=== PATIENT | male | born 1930 | race Asian ===

== ENCOUNTER 2016-10-24 10:05 | Inpatient (IN) | payer OTHER ==
[2016-11-12] MEDS ORDERED: QUET100T2 PO (00:12)
[2016-11-12] MEDS ORDERED: TAMS0.4C PO (00:15)
[2016-11-12] MEDS ORDERED: LANTUS100 MG/ML SC (00:16)
[2016-11-12] MEDS ORDERED: MEGESTROL AC40 MG PO (00:16)
[2016-11-12] MEDS ORDERED: OXYB5TAB56 PO (00:17)
[2016-11-12] MEDS ORDERED: NIFE30TA PO (00:18)
[2016-11-12] MEDS ORDERED: RISP0.25 PO (00:19)
[2016-11-12] MEDS ORDERED: FOLI1TAB26 PO (00:19)
[2016-11-12] MEDS ORDERED: ALLO300T23 PO (00:21)
[2016-11-12] MEDS ORDERED: TRAM50TA PO (00:21)
[2016-11-12] MEDS ORDERED: ZANTAC 75 PO (00:22)
[2016-11-12] MEDS ORDERED: LISI10TA11 PO (00:22)
[2016-11-12] MEDS ORDERED: HALO5INJ3 IM (00:24)
== END 2016-11-24 08:00 | disposition still patient (30) ==
LOC: PAVC 10:05
PROVIDERS: ADMIT Internal Medicine
DX: Z51.89 Encounter for other specified aftercare (principal)

== ENCOUNTER 2016-11-24 09:00 | Inpatient (IN) | payer OTHER ==
[~2016-11-24 09:00] MED LIST: ALLO300T23 PO; FOLI1TAB26 PO; HALO5INJ3 IM; LANTUS100 MG/ML SC; LISI10TA11 PO; MEGESTROL AC40 MG PO; NIFE30TA PO; OXYB5TAB56 PO; QUET100T2 PO; RISP0.25 PO; TAMS0.4C PO; TRAM50TA PO; ZANTAC 75 PO
== END 2016-12-04 09:51 | disposition expired ==
LOC: PAVC 09:00
PROVIDERS: ADMIT Internal Medicine
DX: Z51.89 Encounter for other specified aftercare (principal)

== ENCOUNTER 2016-11-27 08:09 | Outpatient (CLI) | payer OTHER | END 2016-11-27 09:09 | disposition home or self-care (01) | LOC: MRI 08:09 → RESP 10:00 | DX: R55 Syncope and collapse (principal) | CPT/HCPCS: 93225; 93306 ==

== ENCOUNTER 2016-11-28 07:47 | Inpatient (IN) | payer OTHER ==
[2016-11-28] VITALS (16 sets, daily range): BP systolic 56–132; BP diastolic 27–59; TEMP 89.4–97.2; Ht 182.9 cm; Wt 108.6 kg
[~2016-11-28] VITALS: Ht 182.9 cm; Wt 108.6 kg
[2016-11-28 08:14] LABS: PLATELET COUNT 180 K/uL (142-355)
[2016-11-28 08:37] LABS: POTASSIUM 5.3 mmol/L (3.6-5.2); SODIUM 132 mmol/L (136-145)
--- NOTE | 2016-11-28 12:25 | NUR ---
PT ADMITTED FROM ER, PT UNRESPONSIVE AT THIS TIME.
--- NOTE | 2016-11-28 12:35 | NUR ---
BODY TEMP 90 DEGREES. WARMING BLANKET APPLIED
--- NOTE | 2016-11-28 12:57 | NUR ---
ABG DRAWN PER RESP TH
--- NOTE | 2016-11-28 13:20 | NUR ---
DR. WHEELER HERE TO SEE PT. RECEIVED NEW ORDERS.
--- NOTE | 2016-11-28 13:30 | NUR ---
LEVOPHED DRIP INCREASED 22.5ML/HR/6MCG/KG/MIN. BP 50/20.
--- NOTE | 2016-11-28 15:00 | NUR ---
NO URINE OUTPUT AND V/S REPORTED TO DR. WHEELER.
--- NOTE | 2016-11-28 16:07 | NUR ---
FAMILY AT BEDSIDE.
--- NOTE | 2016-11-28 16:22 | NUR ---
ASHLEY AT BS
--- NOTE | 2016-11-28 17:12 | NUR ---
dr. farnsworth called to check on pt. received new orders.
--- NOTE | 2016-11-28 17:12 | NUR ---
increased levophed drip to 10mcg/37.5ml/hr.
--- NOTE | 2016-11-28 18:00 | NUR ---
NGT ATTEMPTED DOWN NARE AND ORAL X 3 ATTEMPTS. UNSUCCESSFUL. RT AT BEDSIDE FOR ART LINE PLACEMENT.
--- NOTE | 2016-11-28 18:30 | NUR ---
PT RESPONDS TO PAINFUL STIMULI, MOVES ARM WHILE ABG ATTEMPTED. EYES OPEN AT TIMES.
--- NOTE | 2016-11-28 18:54 | NUR ---
ART LINE PLACED X 3 ATTEMTPS PER RT. BP 75/[address] WHEELER NOTIFIED.
--- NOTE | 2016-11-28 20:06 | NUR ---
FAXED NEW ORDER FOR VASOPRESSIN TO PHARMACY.
--- NOTE | 2016-11-28 20:11 | NUR ---
CALLED PHARM D FOR INSTRUCTIONS ON VASOPRESSIN.
--- NOTE | 2016-11-28 23:41 | NUR ---
RESP AT BEDSIDE TO OBTAIN ABG.
--- NOTE | 2016-11-28 23:47 | NUR ---
UNABLE TO OBTAIN BLOOD FOR ABG. PER RESP. FELTON GOMEZ RN
[2016-11-29] VITALS (92 sets, daily range): BP systolic 94–151; BP diastolic 36–95; TEMP 96.4–98.3
--- NOTE | 2016-11-29 | NUR ---
RESP AT BEDSIDE WITH ASST FROM ER STAFF TO OBTAIN ABG FEMEROL.
--- NOTE | 2016-11-29 00:16 | NUR ---
MS MASON CALLED TO CHECK ON PT. STATED THAT PT'S SON SHOULD BE HERE BY 08:00 AM FROM [place].
--- NOTE | 2016-11-29 00:30 | NUR ---
RESULTS FROM ABG WERE SENT TO DR WHEELER VIA TEXT MESSAGE. HE REPLIED BACK WITH THE FOLLOWING CHANGES BEING MADE ON THE VENT TIDAL VOLUME DECREASED TO 500 RESP RATE TO 16 AND FIO2 TO 80% CHANGES WERE MADE
--- NOTE | 2016-11-29 02:51 | NUR ---
ORAL CARE GIVEN. SUCTIONED ORALLY WITH YANKUER . FROTHY BLOOD TINGED SPUTUM OBTAINED. WASHED PT FACE. REPOSITIONED LOWER EXT UP ON PILLOW. URINE OUTPUT BEING MONITORED. PT RECEIVING IVF'S OF NS AT 150 ML/HR, LEVOPHED INFUSING AT 37.5 ML (10 MCG/KG/MIN), AMIODARONE DRIP INFUSING AT 16.6 ML AN HOUR, AND VASOPRESSIN INFUSING AT 1.5 ML/HR 0.01 UNITS A MINUTE. CM WITH IRREGULAR RHYTHM. HR 80'S TO 90'S. BP STABLE. BUCIO CATHETAR INTACT. PT DOES TENSE HIS UPPER EXT WHEN STIMULATED BY TOUCH. EYES WILL OPEN BUT WILL NOT FOCUS. PT DOES NOT MOVE LOWER EXTREMITIES.
[2016-11-29 06:35] LABS: PLATELET COUNT 182 K/uL (142-355)
--- NOTE | 2016-11-29 06:40 | NUR ---
BLOOD WAS COLLECTED AND SENT TO LAB.
[2016-11-29 06:49] LABS: POTASSIUM 4.7 mmol/L (3.6-5.2)
--- NOTE | 2016-11-29 07:00 | NUR ---
REPORT FROM PM STAFF. PT RESTIMG WITH EYES CLOSED. PT NON RESPONSIVE TO TOUCH OR STIMULI AT THIS TIME. PUPILS 4MM. NOT RESPONSIVE TO LIGHT. PT STIFF BUT ARMS FALL TO SIDES WHEN DROPPED.
--- NOTE | 2016-11-29 08:45 | NUR ---
ABG DRAWN PER JOSE RAMON GOMEZ SERVICE AIDE, RESUTS TO DR WHEELER PER VIRGIL LEYVA RELIGIOUS EDUCATOR/SCRIBE.
--- NOTE | 2016-11-29 09:30 | NUR ---
VASOPRESSION DRIP STOPPED PER ORDER. MAP 100. NOREPINEPHRINE DECRAESED TO 8MCG/KG/MIN. PT WITH NO RESPONSE OR MOVEMENT OTHER THAN TO OPEN EYES,
--- NOTE | 2016-11-29 10:05 | NUR ---
VENT CHANGES PER ROBSON ALEMAN SALES ASSISTANT DISPLAYS,TV DECREADED TO450,RR RATE DEC. TO 14,PEEP DEC. TO 5, O2 DECREASED TO 60%.
--- NOTE | 2016-11-29 11:34 | NUR ---
DR WHEELER IN TO SEE PT. NEW ORDERS.
--- NOTE | 2016-11-29 11:55 | NUR ---
RADIOLOGY IN FOR CXR.
--- NOTE | 2016-11-29 12:00 | NUR ---
ABG DRAWN PER RESPIRATORY.
--- NOTE | 2016-11-29 12:15 | NUR ---
PT'S SON HERE & IN TO VISIT. DR WHEELER NOTIFIED.
--- NOTE | 2016-11-29 12:20 | NUR ---
PEEP INCREASED TO 10 PER CERTIFIED SKI PATROLLER JOSE RAMON GOMEZ.
--- NOTE | 2016-11-29 13:50 | NUR ---
DR WHEELER IN TO SEE PT'S SON. DISCUSSED OPTIONS. SON WAITING FOR OTHER FAMILY TO ARRIVE BEFORE MAKING A DECISION.
--- NOTE | 2016-11-29 14:34 | NUR ---
PT WITH MAP 80'S, NOREPI DRIP DECREASED TO 6MCG/MIN, 22.5 CC/HR.
--- NOTE | 2016-11-29 16:54 | NUR ---
PT WITH MAP IN THE 80'S. NOREPI DRIP DECREASED TO 4 MCG/MIN/15CC/HR. MULTIPLE FAMILY MEMBERS IN TO SEE PT. NO DECISIONS MADE AT THIS TIME PER FAMILY TO CHANGE CODE STATUS.
--- NOTE | 2016-11-29 18:22 | NUR ---
PT RESTING WITH EYES CLOSED. TURNED & REPOSITIONED FOR COMFORT EYES OPENED WHEN TUNED. NO OTHER RESPONSE NOTED.
--- NOTE | 2016-11-29 19:15 | NUR ---
ASSESSMENT COMPLETED AT THIS TIME. PATIENT DOES NOT FOLLOW COMMANDS. SLIGHT MOVEMENT NOTED TO BOTH HANDS WHEN PATIENT STIMULATED BY TOUCH WHEN DOING ASSESSMENT. PUPILS ARE 4MM NONREACTIVE. ET TUBE 25 AT THE LIP VENT SETTINGS 60%, TV 500, RT 16, PEEP 10. RIGHT IG 20 G NOTED SALINE LOCKED. LEFT SUBCLAVIAN TRIPLE LUMEN CATH NOTED INFUSING LEVOPHED AT 4 MCG/MIN (15ML/HR), NS AT 150 ML/HR, AMIODORONE AT 16.6 ML. HEART RYTHYM NOTED TO SR WITH ARTIFACTS AT 88 BPM. BUCIO CATH NOTED TO BE PRESENT PATENT AND INTACT WITH APPROX 300ML OF YELLOW URINE NOTED.
--- NOTE | 2016-11-29 21:10 | NUR ---
MAP>80, LEVOPHED DRIP DECREASED TO 3MCG/MIN (11.3 ML/HR). WILL CONTINUE TO MONITOR CLOSELY.
--- NOTE | 2016-11-29 21:10 | NUR ---
MAP >80 , TITRATED RATE DOWN TO 3MCG/MIN ( 11.3 ML/HR).
--- NOTE | 2016-11-29 23:05 | NUR ---
ORAL CARE PROVIDED AND MOUTH SUCTIONED WITH PEDRITOUER. WHITE THICK FROTHY SPUTUM NOTED. PATIENT TOLERATED FAIRLY WELL.
--- NOTE | 2016-11-29 23:30 | NUR ---
SON ANNALEE ARANGO HERE TO SEE PATIENT. STATES HE IS WAITING FOR HIS FATHER'S SISTER'S TO COME AND SEE HIM AND HE WILL DECIDE TOMMOROW AFTERNOON TO TAKE HIM OFF THE VENTILATOR. PROVIDED AMPLE TIME FOR QUESTIONS AND CONCERNS.
--- NOTE | 2016-11-29 23:32 | NUR ---
MAP>90 LEVOPHED DRIP DECREASED TO 2MCG/MIN (7.5 ML/HR). WILL CONTINUE TO MONITOR.
[2016-11-30] VITALS (36 sets, daily range): BP systolic 119–152; BP diastolic 60–92; TEMP 97–98.5
--- NOTE | 2016-11-30 00:30 | NUR ---
PATIENT SUCTIONED AT THIS TIME. WHITE/GREEN TINGED THICK SECRETIONS NOTED.
--- NOTE | 2016-11-30 01:30 | NUR ---
PATIENT REPOSITIONED AT THIS TIME ON HIS RIGHT SIDE WEDGE PLACED ON HIS BACK.
--- NOTE | 2016-11-30 02:45 | NUR ---
CURRENT VENT SETTINGS FIO2 60%, RATE 14, TIDAL VOLUME 450, PEEP 10.
--- NOTE | 2016-11-30 04:14 | NUR ---
GARGLING NOISES HEARD IN PATIENT'S MOUTH. MOUTH SUCTIONED AT THIS TIME. SMALL AMOUNT OF THICK SECRETIONS NOTED.
--- NOTE | 2016-11-30 04:35 | NUR ---
MAP>80 LEVOPHED TITRATED DOWN TO 1MCG (3.8ML/HR).
--- NOTE | 2016-11-30 06:25 | NUR ---
PARTIAL BATH GIVEN. MOUTH CARE DONE AT THIS TIME. PATIENT REPOSITIONED ON HIS LEFT SIDE WITH WEDGE SUPPORTING HIS LOWER BACK. PATIENT DOES OPEN AND MOVE HIS EYELIDS PARTIALLY WHEN REPOSITIONING BUT NO OTHER MOTOR MOVEMENTS NOTED.
[2016-11-30 06:41] LABS: PLATELET COUNT 156 K/uL (142-355)
[2016-11-30 07:22] LABS: POTASSIUM 4.1 mmol/L (3.6-5.2)
--- NOTE | 2016-11-30 08:15 | NUR ---
LEVOPHED STOPPED, BP 136/89
--- NOTE | 2016-11-30 11:12 | NUR ---
ADJUSTMENTS MADE TO VENT PER RESP THERAPY. DECREASED RATE 12, DECREASED FI02 50%
--- NOTE | 2016-11-30 12:37 | NUR ---
PT PLACED BACK ONTO WARMING BLANKET RECTAL TEMP 96.8
--- NOTE | 2016-11-30 14:30 | NUR ---
VENT MONITOR ALARMING, HIGH RESP RATE. RHONCHI TO MARCELLE UPPER LOBES. PT LAVAGED, SUCTIONED SEVERAL TIMES, YELLOW SECRETIONS REMOVED.
--- NOTE | 2016-11-30 15:22 | NUR ---
DR WHEELER AT BS WITH SON.
--- NOTE | 2016-11-30 16:10 | NUR ---
PT EXTUBATED, SATS IMMED DROP TO 58% NON REBREATHER INPLACE
--- NOTE | 2016-11-30 16:20 | NUR ---
SATS INCREASE 100%. FAMILY AT BS
--- NOTE | 2016-11-30 16:53 | NUR ---
PT TRANSPORTED TO [facility] 1111, PT CURRENTLY ON A NON REBREATHER. FAMILY AT BS. SUCTION AT BS
--- NOTE | 2016-11-30 17:30 | NUR ---
REPORT GIVEN TO HOSPICE NURSE.
--- NOTE | 2016-11-30 17:50 | NUR ---
PT SUCTIONED. RESP LABORED.
--- NOTE | 2016-11-30 18:07 | NUR ---
SCOPALAMINE PLACED BEHIND R EAR
--- NOTE | 2016-11-30 19:05 | NUR ---
PT SUCTIONED, HOB UP. RESP 25. FAMILY AT BS
[2016-12-01 20:10] VITALS: BP 144/81; TEMP 97.9
[2016-12-02 08:24] VITALS: BP 134/58; TEMP 98.2
--- NOTE | 2016-12-02 11:57 | NUR ---
1145 REPORT CALLED AND GIVEN LIZ AT [facility]. PT'[facility] MEDS FROM [facility] . PT TRANSFFERED BACK TO [facility] VIA BED NO CHANGES NOTED
--- NOTE | 2016-12-02 12:43 | NUR ---
1215 PT TRANSFERRED TO [facility] VIA BED PER TECHS. PT TOLERATED WELL. NO CO OR CHANGES NOTED AT THIS TIME. PT TOLERATED TRANSFER WELL. 1240 SPOKE WITH LIZ AT [facility] CONCERNING NON REBREATHER. SPOKE WITH DR CARMICHAEL CONCERNING PER NURSE UNABLE TO SUPPORT PT ON NON REBREATHER DUE TO O2 CAPABLITIES. NEW ORDERS REC'D TO CHANGE PT TO NC AT 5L/NC. ORDERS GIVEN VIA PHONE TO LIZ
== END 2016-11-30 16:47 | disposition short-term general hospital (02) | DRG 208 ==
LOC: ED 07:47 → ICU 10:10 → MED/SURG 11-30 16:47 → ICU 11-30 16:47 → MED/SURG 11-30 16:50 → ED 11-30 16:50 → ICU 12-02 12:15 → MED/SURG 12-02 12:15
PROVIDERS: Internal Medicine
PROC: 5A1945Z Respiratory Ventilation, 24-96 Consecutive Hours (ICD-10-PCS; principal; 2016-11-28)
PROC: 0BH18EZ Insertion of Endotracheal Airway into Trachea, Via Natural or Artificial Opening Endoscopic (ICD-10-PCS; 2016-11-28)
DX: J96.00 Acute respiratory failure, unspecified whether with hypoxia or hypercapnia (principal); I46.9 Cardiac arrest, cause unspecified; I49.01 Ventricular fibrillation; I95.89 Other hypotension; E11.9 Type 2 diabetes mellitus without complications; N40.0 Benign prostatic hyperplasia without lower urinary tract symptoms; M15.8 Other polyosteoarthritis; E87.5 Hyperkalemia; R55 Syncope and collapse
CPT/HCPCS: 31500; 36415; 36558; 36600; 36620; 51702; 80053; 82550; 82553; 82805; 82962; 83605; 83735; 84484; 85027; 85610; 92950; 92960; 93005; 93225; 93306; 94003; 94760; 96360; 96361; 96365; 96372; 99291; C1726; C1768; J0171; J0282; J1644; J3490

== ENCOUNTER 2016-11-30 16:50 | Inpatient (IN) | payer OTHER | END 2016-12-02 12:15 | DRG 189 | LOC: MED/SURG 16:50 | DX: J96.20 Acute and chronic respiratory failure, unspecified whether with hypoxia or hypercapnia (principal) | CPT/HCPCS: 36600; 80053; 82805; 85027; 93005; 94003; 94760; 96372; J0282; J1644; J3490 ==